=== PATIENT | female | born 1980 | race Caucasian/White ===

== ENCOUNTER 2018-05-31 18:06 | Emergency (ER) | payer MEDICAID ==
[~2018-05-31] VITALS: Ht 170.2 cm; Wt 78.5 kg
[2018-05-31 18:15] VITALS: BP 116/85
[2018-05-31] MEDS ORDERED: ACETAMINOPHEN W/ CODEINE#3 1 EA TABLET PO ONE (19:00)
[2018-05-31] MEDS ORDERED: ACETAMINOPHEN W/ CODEINE#3 1 EA TABLET ONE (19:01)
--- NOTE | 2018-05-31 19:15 | NUR ---
Patient discharged to home in stable condition. Written and verbal after care instructions given. Patient verbalizes understanding of instruction.
== END 2018-05-31 19:17 | disposition home or self-care (01) ==
LOC: ER 18:11
DX: E04.1 Nontoxic single thyroid nodule (principal); J00 Acute nasopharyngitis [common cold]; M54.2 Cervicalgia